=== PATIENT | male | born 1995 | race Caucasian/White ===

== ENCOUNTER 2021-06-15 12:54 | Emergency (ER) | payer OTHER, SELFPAY ==
[2021-06-15 13:05] VITALS: BP 106/66; PULSE 64; RESP 16; TEMP 36.3; O2SAT 99
--- NOTE | 2021-06-15 13:23 | ED.SKABFB ---
HPI - Skin/Abscess/Foreign Bdy General Chief complaint: Skin/Abscess/Foreign Body Stated complaint: rash Time Seen by Provider: 06/15/21 13:23 Source: patient Mode of arrival: ambulatory Limitations: no limitations History of Present Illness HPI narrative: 25-year-old male presents with itchy rash to neck, chest and back. Patient reports that he had 1 lesion to his neck for the past month. Over the last week he has had several more lesions pop up. Went to work today and they are concerned that he is contagious. All systems reviewed and negative except as noted above. Related Data Home Medications Medication Instructions Recorded Confirmed paliperidone palmitate [Invega 234 mg IM MONTHLY 06/15/21 06/15/21 Sustenna] Allergies Allergy/AdvReac Type Severity Reaction Status Date / Time Penicillins Allergy Hives Verified 06/15/21 13:25 Review of Systems Review of Systems: CONSTITUTIONAL: Denies fever, chills, or sweats. EYES: Denies visual changes, redness, or discharge. ENT: Denies rhinorrhea, congestion, sore throat, or otalgia. CARDIOVASCULAR: Denies chest pain, palpitations, or edema. RESPIRATORY: Denies cough or dyspnea. GASTROINTESTINAL: Denies abdominal pain, nausea, vomiting, or diarrhea. GENITOURINARY: Denies dysuria or hematuria. SKIN: Reports rash and itching. MUSCULOSKELETAL: Denies back pain, joint pain, or myalgia. NEUROLOGIC: Denies headache, numbness, or weakness. PSYCHIATRIC: Denies anxiety or depression. All other systems reviewed are negative, except as documented in HPI. PMFSH Comments At time of signature, agree with nursing past medical, surgical, social and family history. There is no relevant family history pertinent to the presenting complaint. Exam Narrative: GENERAL: This is a well-nourished, well-developed patient, in no apparent distress. HEAD: normocephalic, atraumatic. EYES: PERRL. Sclera clear/white. Vision is grossly intact. EARS: External ears normal NOSE: External nose normal NECK: Neck supple, non-tender without lymphadenopathy, masses or thyromegaly. CARDIOVASCULAR: Regular rate and rhythm without murmurs, gallops, or rubs. RESPIRATORY: Clear to auscultation. Breath sounds equal bilaterally. No wheezes, rales, or rhonchi. SKIN: warm, Dry, intact, good texture and turgor. Patient has oval shaped erythematous scaly lesions to anterior aspect of neck, trunk area. Lesions are flat. No signs of bacterial infection or fungal infection. NEURO: awake, alert, and oriented to person, place and time. There were no obvious focal neurologic abnormalities. EXTREMITIES: No joint tenderness, effusion, or edema noted. No calf tenderness. Negative Homans sign bilaterally. Course Course Level of Care: Express Care Visit Vital Signs Vital signs: Reviewed MDM - Skin/Abscess/Foreign Bdy MDM Narrative Medical decision making narrative: Patient is aware of diagnosis, understands and agrees to treatment plan. Anticipatory guidance given. Patient agrees to follow-up as directed and is aware of reasons to seek care at the emergency department. Portions of this record may have been created with voice recognition software Discharge Plan Discharge Clinical Impression: Pityriasis rosea Patient Disposition: Home, Self-Care Condition: Stable Instructions: Pityriasis rosea (ED) Additional Instructions: Use steroid cream as prescribed for itching. Pityriasis rosea is a viral rash. Can last several weeks to months. Prescriptions: New triamcinolone acetonide 0.1 % cream 1 applic topical TID PRN (Reason: itching) Qty: 30 RF: 0 hydroxyzine HCl 10 mg tablet 10 mg PO Q6-8H PRN (Reason: itching) Qty: 30 RF: 0 No Action Invega Sustenna 234 mg/1.5 mL syringe 234 mg IM MONTHLY RF: 0 Follow-up/Referrals: Rusty,Vinay Duggan MD [Primary Care Provider] - Time of Disposition: 13:27
== END 2021-06-15 13:30 | disposition home or self-care (01) ==
PROVIDERS: Emergency Provider Nurse Practitioner Family; PCP Family Medicine
DX: L42 Pityriasis rosea (principal)
CPT/HCPCS: 99203; G0463